=== PATIENT | male | born 1985 | race Caucasian/White ===

== ENCOUNTER 2017-05-17 13:12 | Emergency (ER) | payer SELFPAY ==
[~2017-05-17] VITALS: Ht 180.3 cm; Wt 90.7 kg
[~2017-05-17 13:12] MED LIST: DOXYCYCLINE HY100 M1 PO; FLEXERIL10 M1 PO; FLOMAX0.4 M1 PO; FLOMAX0.4 MG PO; LORTAB 7.5-5001 TAB PO; LORTAB 7.51 TAB 7.5/ PO; NO MEDICATIONS; PHENERGAN PO; ROBAXIN500 MG PO; TESSALON200 MG PO
[2017-05-17 14:25] LABS: BASOPHIL% 0.5 % (0-2.5); EOSINOPHIL# 0.4 X10e3 (0-0.7); EOSINOPHIL% 4.5 % (0.0-7.0); HEMATOCRIT 45.5 % (38.0-50.0); HEMOGLOBIN 15.5 gm/dL (13.0-16.0); LYMPHOCYTE# 1.5 X10e3 (1.0-3.5); LYMPHOCYTE% 18.3 % (17.0-45.0); MEAN CORPUSCULAR HEMOGLOBIN 29.2 PG (28-34); MEAN PLATELET VOLUME 8.3 FL (6.5-11.5); MONOCYTE# 0.5 X10e3 (0-1.0); MONOCYTE% 6.2 % (3.0-12.0); NEUTROPHIL# 5.8 X10e3 (1.5-7.1); NEUTROPHIL% 70.5 % (40-75); PLATELET COUNT 269 X10e3 (140-420); RED BLOOD COUNT 5.29 X10e (3.90-5.60); RED CELL DISTRIBUTION WIDTH 12.9 % (11.0-15.5); WHITE BLOOD COUNT 8.2 X10e3 (4.0-10.5)
[2017-05-17 14:27] LABS: DIFF IND NO
[2017-05-17 15:00] LABS: CALCIUM SERUM 8.7 mg/dL (8.4-10.2); GLOM FILT RATE Estimated 99.9 mL/min (>60); POTASSIUM 3.2 mmol/L (3.5-5.1)
== END 2017-05-17 15:30 | disposition home or self-care (01) ==
LOC: CED 13:12
PROVIDERS: Emergency Medicine
DX: K21.9 Gastro-esophageal reflux disease without esophagitis (principal)
CPT/HCPCS: 36415; 80048; 85025; 85610; 99284